=== PATIENT | female | born 2000 | race African-American/Black ===

== ENCOUNTER 2022-06-17 16:11 | Emergency (ER) | payer SELFPAY ==
[~2022-06-17] VITALS: Ht 160 cm; Wt 52.3 kg
[2022-06-17 16:12] VITALS: BP 94/46
[2022-06-17] MEDS ORDERED: PENI500T2 PO (16:54)
[2022-06-17] MEDS ORDERED: ACET-2080 PO (16:54)
[2022-06-17] MEDS ORDERED: IBUP-1554 PO (16:54)
[2022-06-17] MEDS ORDERED: GUAIFDM PO (16:54)
[2022-06-17] MEDS ORDERED: PERCT PO (17:29)
== END 2022-06-17 17:40 | disposition home or self-care (01) ==
LOC: EMS 16:11
DX: J06.9 Acute upper respiratory infection, unspecified (principal); K08.89 Other specified disorders of teeth and supporting structures
CPT/HCPCS: 99282; 99283